=== PATIENT | male | born 1970 | race Two or more races ===

== ENCOUNTER 2023-12-17 06:00 | Day surgery (SDC) | payer OTHER ==
[2023-12-16 10:00] LABS: URINE APPEARANCE Cloudy; URINE BILIRRUBIN Small (NEGATIVE); URINE BLOOD Large; URINE COLOR Red; URINE GLUCOSE Negative (NEGATIVE); URINE KETONE Negative (NEGATIVE); URINE LEUKOCYTE Small; URINE NITRATE Negative; URINE UROBILINOGEN 0.2 E.U./dl
[2023-12-16 10:05] LABS: URINE BACTERIA 78.1 uL (0.0-1933); URINE RBC 10553.1 uL (0.0-20.8); URINE WBC 68.5 uL (0.0-23.2)
[2023-12-16 10:15] LABS: URINE PROTEIN 300 (NEGATIVE)
[~2023-12-17 06:00] MED LIST: LEXAPRO5 MG PO; TOPROL XL50 M1 PO
[2023-12-17] MEDS ORDERED: GENTAMICIN SULFATE 40 MG/ML VIAL ONE (08:47)
[2023-12-17] MEDS ORDERED: PHENAZOPYRIDINE HCL 100 MG TABLET PO ONE ×2 (15:15→16:27)
[2023-12-17] MEDS ORDERED: OxyCODONE HCL/APAP UD (PERCOCET) PO ONE (15:15)
[2023-12-17] MEDS ORDERED: OXYBUTYNIN CHLORIDE 5 MG TABLET PO ONE (15:15)
== END 2023-12-17 18:30 | disposition home or self-care (01) ==
LOC: CIR.AMB 06:00
PROVIDERS: ATTEND Urology
DX: D30.3 Benign neoplasm of bladder (principal); E85.4 Organ-limited amyloidosis; R31.0 Gross hematuria